=== PATIENT | female | born 1960 | race Caucasian/White ===

== ENCOUNTER 2020-05-22 18:24 | Emergency (ER) | payer MEDICAID ==
[~2020-05-22] VITALS: Ht 165.1 cm; Wt 99.8 kg
[2020-05-22] MEDS ORDERED: Ketorolac 30mg Inj IM ONE (18:30)
[2020-05-22 18:48] VITALS: BP 136/94
--- NOTE | 2020-05-22 18:52 | NUR ---
ED Nurse Note:pt. was BIBA from home with s/p mechanical fall and right elbow and ankle pain, x-ray was done and pain med given
[2020-05-22] MEDS ORDERED: HYDROcodone/Acetamin 5/325 tab ORAL ONE (19:15)
[2020-05-22] MEDS ORDERED: DiphenhydrAMINE 25mg/10ml Elixir ORAL ONE (19:15)
--- NOTE | 2020-05-22 20:15 | Emergency Room Report ---
History of Present Illness General Chief Complaint: Multiple Trauma/Fall Source: Patient (Jocelyn Donovan) Present Illness HPI 59-year-old female with no symptom past medical history brought in by paramedics due to multiple trauma. Patient reports that she was at work and she missed a step twisted her right ankle and landed on her right elbow outstretched hand. Patient rates the pain elbow 10 out of 10 with radiation to right wrist with numbness. Has not taken medication for symptom relief. Also reports that she has severe osteoporosis. Does not take medication on a daily basis. Denies other injuries, head injury or loss of consciousness. Patient is neurovascularly intact. No unilateral generalized weakness noted. Denies chest pain, shortness of breath, headache and dizziness. Denies . 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 (Jocelyn Donovan) Patient History Past Medical History: unable to obtain Past Surgical History: none Pertinent Family History: none Now: No Immunizations: UTD Reviewed Nursing Documentation: PMH: Agreed; PSxH: Agreed (Jocelyn Donovan) Nursing Documentation-PMH Past Medical History: No History, Except For (Jocelyn Donovan) Review of Systems All Other Systems: negative except mentioned in HPI (Jocelyn Donovan) Physical Exam Vital Signs Date Time Temp Pulse Resp B/P (MAP) Pulse Ox O2 Delivery O2 Flow Rate FiO2 05/22/20 18:18 97.7 90 20 136/94 (108) 98 Room Air Sp02 EP Interpretation: reviewed, normal General Appearance: normal inspection, alert, GCS 15 Head: normocephalic, atraumatic Eyes: normal eye exam, PERRL, EOMI, lids + conjunctiva normal, no hyphema, no racoon eyes ENT: normal ENT inspection, TMs + canals normal, oropharynx normal, no coffman signs Neck: trach midline, no bony tend, full range of motion without pain Respiratory: effort normal, no retractions, clear to auscultation, chest symmetrical, palpation of chest normal, speaking in full sentences Cardiovascular: regular rate, rhythm, no JVD Cardiovascular #2: 2+ radial (R), 2+ radial (L), 2+ dorsalis pedis (R), 2+ dorsalis pedis (L) Gastrointestinal: normal inspection, non-tender, non-distended, no rebound/ guarding, normal bowel sounds Genitourinary: normal inspection Musculoskeletal: other - Obvious tenderness and deformity of right ulnar head, right lateral malleolus swelling Skin: no rash Lymphatic: normal inspection Neurologic: oriented x3, sensory intact, motor strength/tone normal, normal speech Psychiatric: normal inspection, memory normal, mood normal, no suicidal/ homicidal ideation (Jocelyn Donovan) Procedures Splinting Splinting #1: Consent: Verbal Location: Right elbow Hand-Made Type: plaster Splint: sugar-tong Pre-Proc Neuro Vasc Exam: normal Post-Proc Neuro Vasc Exam: normal Patient Tolerated: Well Complications: None Splinting #2: Consent: Verbal Location: Right ankle Pre-Made Type: Postoperative shoe was given as we could not splint the right ankle and the right elbow as patient will not be able to walk and use a walker at the same time. Pre-Proc Neuro Vasc Exam: normal Post-Proc Neuro Vasc Exam: normal Patient Tolerated: Well Complications: None Progress Sling was applied (Joeclyn Donovan) Medical Decision Making PA Attestation All diagnoses and treatment plans were reviewed and discussed with my supervising physician Dr. Souaz (Jocelyn Donovan) Diagnostic Impression: Primary Impression: Closed fracture of head of right ulna Additional Impression: Ankle sprain ER Course 59-year-old female with no symptom past medical history brought in by paramedics due to multiple trauma. Patient reports that she was at work and she missed a step twisted her right ankle and landed on her right elbow outstretched hand. Patient rates the pain elbow 10 out of 10 with radiation to right wrist with numbness. Has not taken medication for symptom relief. Also reports that she has severe osteoporosis. Does not take medication on a daily basis. Denies other injuries, head injury or loss of consciousness. Patient is neurovascularly intact. No unilateral generalized weakness noted. Denies chest pain, shortness of breath, headache and dizziness. Denies . Ddx considered but are not limited to: ankle sprain, ankle strain, ankle fracture, ankle contusion, ankle fracture versus contusion versus sprain Vital signs: are WNL, pt. is afebrile H&PE are most consistent with: Closed fracture of right ulnar head, right ankle sprain ORDERS: ankle x-ray, elbow x-ray, ibuprofen 800, Gautier, Zofran and Benadryl were given as patient reported that narcotics make her nauseous and itchy. ED INTERVENTIONS: Toradol, Zofran, Benadryl, Gautier. After Zofran. Was given and Gautier given shortly after patient denies any nausea or any itchiness. Splint was applied and a walker was provided. Postoperative shoe was applied with Wagner wrap right ankle DISCHARGE: At this time pt. is stable for d/c to home. Will provide printed patient care instructions, and any necessary prescriptions. Care plan and follow up instructions have been discussed with the patient prior to discharge patient to follow-up with video specialist, take medication as directed, if worsening symptoms return to the emergency room also take if any increased pressure and swelling and any dyspnea to prevent compartment syndrome (Jocelyn Donovan) Other X-Ray Diagnostic Results Other X-Ray Diagnostic Results #1: X-Ray ordered: Right elbow # of Views/Limited Vs Complete: 3 View Indication: Pain EP Interpretation: Yes Interpretation: other - Fracture right ulnar head Impression: Other - Right ulnar head fracture Electronically Signed by: Jocelyn Up PA-C Other X-Ray Diagnostic Results #2: X-Ray ordered: Right ankle # of Views/Limited Vs Complete: 3 View Indication: Pain EP Interpretation: Yes Interpretation: no dislocation, no fractures Impression: No acute disease Electronically Signed by: Jocelyn Up PA-C PA Scribe Text Possible hairline fracture due to patient being osteopenic (Jocelyn Donovan) Other X-Ray Diagnostic Results #1: Electronically Signed by: P A documentation of Xray reviewed by me and is accurate, Jeff Souza MD Other X-Ray Diagnostic Results #2: Electronically Signed by: P A documentation of Xray reviewed by me and is accurate, Jeff Souza MD (Jeff Souza MD) Last Vital Signs Date Time Temp Pulse Resp B/P (MAP) Pulse Ox O2 Delivery O2 Flow Rate FiO2 05/22/20 18:54 97.7 05/22/20 18:48 90 20 136/94 98 Room Air (Jocelyn Donovan) Disposition: HOME, SELF-CARE Condition: Stable Scripts Diphenhydramine Hcl* (BENADRYL*) 25 Mg Capsule 25 MG ORAL Q8HR PRN for Itching, #20 CAP Prov: Jocelyn Donovan 05/22/20 Ondansetron (Zofran) 4 Mg Tablet 4 MG ORAL Q6H PRN for Nausea & Vomiting, #14 TAB Prov: Jocelyn Donovan 05/22/20 Ibuprofen (Ibu) 800 Mg Tablet 800 MG PO TID, #30 TAB Prov: Jocelyn Donovan 05/22/20 Hydrocodone Bit/Acetaminophen 5-325* (NORCO 5-325 TABLET*) 1 Each Tablet 1 TAB ORAL Q8HR PRN for FOR PAIN for 4 Days, #12 TAB 0 Refills Prov: Jocelyn Donovan 05/22/20 Referrals: NON PHYSICIAN (PCP) Patient Instructions: Ankle Sprain, [id number], Ulnar Fracture Additional Instructions: Take medication as directed, follow-up with your video specialist, worsening symptoms return to the emergency room Jocelyn Donovan May 22, 2020 20:15 Jeff Souza MD May 23, 2020 05:11
[2020-05-22] MEDS ORDERED: BENADRYL25 MG ORAL (20:16)
[2020-05-22] MEDS ORDERED: IBU800 MG PO (20:16)
[2020-05-22] MEDS ORDERED: NORCO 5-325 TA1 EAC1 ORAL (20:16)
[2020-05-22] MEDS ORDERED: ZOFRAN4 M1 ORAL (20:16)
--- NOTE | 2020-05-22 20:35 | NUR ---
ER DISCHARGE NOTE: Patient is cleared to be discharged per ERMD, pt is aox4, on room air, with stable vital signs. pt was given dc and prescription instructions, pt was able to verbalize understanding, pt id band removed. pt is able to ambulate with steady gait with walker/cane, pt left with daughter. pt took all belongings.
[2020-05-22 20:45] VITALS: BP 128/88
--- NOTE | 2020-05-23 10:23 | Diagnostic Imaging Report ---
EXAM: X-RAY XRAY Elbow Min 3v R CLINICAL HISTORY: Trauma with elbow pain. COMPARISON: None FINDINGS: Total of free views of the right elbow were obtained. There is a fracture of the proximal ulna which is only mildly displaced. There is also a subtle depressed fracture of the radial head. Joint spaces are unremarkable. Surrounding soft tissue is normal. IMPRESSION: RADIAL AND ULNAR FRACTURES
--- NOTE | 2020-05-23 10:24 | Diagnostic Imaging Report ---
EXAM: X-RAY XRAY Ankle Compl Min 3v R CLINICAL HISTORY: Trauma with ankle pain. COMPARISON: None FINDINGS: Total of 3 views of the right ankle were obtained. Alignment is anatomic. There is no acute fracture, bony lesions or erosions. There may be an old avulsion of the navicular. Joint spaces appear anatomic. Surrounding soft tissue is normal. IMPRESSION: NO ACUTE FRACTURE OR MALALIGNMENT. POSSIBLE OLD AVULSION OF THE NAVICULAR.
== END 2020-05-22 20:35 | disposition home or self-care (01) ==
LOC: EDBD 18:24 → EMR 18:54
DX: S52.001A Unspecified fracture of upper end of right ulna, initial encounter for closed fracture (principal); S93.401A Sprain of unspecified ligament of right ankle, initial encounter; W10.9XXA Fall (on) (from) unspecified stairs and steps, initial encounter; Y93.01 Activity, walking, marching and hiking; Y92.89 Other specified places as the place of occurrence of the external cause
CPT/HCPCS: 29105; 73080; 73610; 96372; 96374; J1885; J2405; Z7502; 99284

== ENCOUNTER 2020-05-26 20:02 | Emergency (ER) | payer MEDICAID ==
[~2020-05-26] VITALS: Ht 165.1 cm; Wt 72.6 kg
[~2020-05-26 20:02] MED LIST: BENADRYL25 MG ORAL; IBU800 MG PO; NORCO 5-325 TA1 EAC1 ORAL; ZOFRAN4 M1 ORAL
[2020-05-26 20:18] VITALS: BP 140/88
[2020-05-26] MEDS ORDERED: Morphine Sulfate 4mg/ml Inj (IV USE ONLY) IV ONE (21:00)
[2020-05-26] MEDS ORDERED: HYDROcodone/Acetamin 10/325 tab ORAL ONE (21:00)
[2020-05-26] MEDS ORDERED: Morphine Sulfate 2mg/ml Inj(IV/IM USE ONLY) IM ONE ×2 (21:30)
[2020-05-26] MEDS ORDERED: Morphine Sulfate 4mg/ml Inj (IV USE ONLY) IVP ONE (21:45)
--- NOTE | 2020-05-26 22:34 | Emergency Room Report ---
History of Present Illness General Chief Complaint: Upper Extremity Injury Source: Patient Present Illness HPI [id number] 59-year-old obese female presents with complaint of numbness and tingling to the right upper extremity where her splint is contacting her skin. Of note, patient was recently treated in the emergency department and discharged with a splint after she had trauma resulting in a closed right ulna and radial fracture. She states today at 7 PM she started to feel mild pain and numbness at the medial aspect of her splint. She has follow-up with an orthopedic surgeon Tuesday at 10 AM. She denies repeat trauma, paralysis, pain out of proportion, chest pain, shortness of breath, nausea, vomiting, or other complaints The patient's symptom severity was moderate, duration since 1days. Quality: aching Past medical history: Denies Past surgical history: Denies Smoking: Denies Alcohol use: Denies Drug use: Denies Review of systems: CONST: No fevers or chills, No night sweats PULMONARY: No productive cough, No shortness of breath CARDIAC: No chest pain, No palpitations GI: No vomiting, No diarrhea , No melena_or_BRBPR : No dysuria, No hematuria, No discharge NEURO: No new_focal_weakness_or_numbness, No confusion, No vision changes 14 point Review of Systems is otherwise negative except per HPI Physical Exam: GENERAL: Awake_alert_ nontoxic, no acute distress Spo2 98% on RA -normal EYES: Extraocular muscles are intact. Conjunctivae clear. Lids without swelling ENT: External nose and ear normal_in_appearance. Oropharynx clear. Head_ atraumatic, Moist_oral_mucosa NECK: No JVD. No meningismus. No thyromegaly. Supple. Trachea midline RESP: Normal respiratory effort. Symmetric rise. No stridor. Clear_to_ auscultation_No_rales_No_wheezes CARDIAC: [Regular rate] and regular rhythm on_auscultation No_significant pedal edema. ABDOMEN: Soft. Nondistended. Nontender_No_rebound_or_guarding. MSK: Normal muscle tone, without rigidity. Extremities without asymmetric deformity or swelling. Upper extremity exam: RIGHT Elbow: mild swelling / effusion appreciated, no significant pain with passive range of motion; COMPARTMENT ARE SOFT AND COMPRESSIBLE SILT, intact AIN PIN MEDIAN RADIAL ULNAR N. Mild difficulty opposing thumb to pink Wrist: No swelling / effusion appreciated, no significant pain with passive range of motion Lateral epicondyle: no tenderness / swelling / ecchymoses Medial epicondyle: no tenderness / swelling / ecchymoses Radial pulse: 2+ Capillary refill: <3 seconds in all fingers All fingers: full range of motion without any tenderness / swelling / deformity / evidence of infection Scaphoid: no tenderness / swelling / ecchymoses, no pain with axial loading of the thumb Radian / Median / Ulnar nerves: all intact (finger opposition, finger adduction / abduction, thumb dorsiflexion) Sensation intact to light touch: in all fingers Strength 5/5 with: wrist dorsi / volar flexion, hand consulting services associate, elbow flexion / extension SKIN: Warm and dry. No visible cyanosis or pallor NEUROLOGIC: Alert, oriented x3. Motor_and_sensation_grossly_intact. No truncal ataxia. Gait_normal Psych: Normal mood and affect, normal judgment and insight - COORDINATION OF CARE Case was discussed with: Patient Any imaging that were ordered were interpreted as part of the medical decision making: Medical Decision Making/Plan: Differential diagnosis includes musculoskeletal pain, fracture, dislocation, compartment syndrome, nerve damage, among others. Initial vital signs are unremarkable. Due to initial concern for compartment syndrome, the splint was cut off. Exam of the right upper extremity demonstrate mild difficulty in opposing right thumb to right pinky. Concern for nerve apraxia, otherwise grossly unremarkable. She has retained flexion and extension of the elbow/wrist. No snuffbox tenderness to palpation. Sensation is intact to light touch. Compartment checks were unremarkable. All compartments of the right forearm are soft and compressible. There is no gross deformity. X-rays redemonstrate closed minimally displaced ulna/radius fracture. Pain was controlled after we removed the splint. We resplinted patient a bit more loosely and added a sling for comfort. Fortunately, patient has prompt orthopedic follow-up within the next 1 to 2 days for definitive management. I have instructed her to be nonweightbearing to the right upper extremity until seen by Ortho. I do not have high suspicion that she has compartment syndrome. Her pain has resolved. The compartments are soft, but we discussed strict return ER precautions at length, to which she verbalizes her understanding. Distally the patient has capillary refill <2 seconds and strong pulses. There is no pallor or pain out of proportion to exam. There is no significant swelling, deformity, or report of significant dislocation that subsequently reduced. No evidence of arterial occlusion or injury. The associated joints have full range of motion without any significant pain or restriction in mobility. No evidence at this time of major ligamentous disruption. Pertinent results reviewed with the patient. I educated the patient on the current treatment plan including the risks, benefits, and alternatives. I also discussed the extent and limitations of the current evaluation. The patient expressed understanding and agreement with plan. I recommended PMD follow-up within 1-2 days. Also advised that the patient return to the Emergency Department as soon as possible if they experience any new, persistent, or worsening symptoms. 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 Applied to right shoulder Splint applied by [employer] with direct supervision by me. Reassessed following splint application. Neurovascular intact. Compartments remain soft and compressible. Pt tolerated well without complications. Splint care instructions were discussed. 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 Right elbow sugar tong splint: splint applied to right upper extremity Splint applied by tech with direct supervision by me. Reassessed following splint application. Neurovascular intact. Compartments remain soft and compressible. Pt tolerated well without complications. Splint care instructions were discussed. 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 Medical Decision Making Diagnostic Impression: Primary Impression: Closed fracture of head of right ulna Additional Impression: Radial head fracture, closed Chest X-Ray Diagnostic Results Chest X-Ray Diagnostic Results : PA Scribe Text Right forearm X-ray: Views: 2 view(s) Radial fracture. Ulnar fracture minimal dislocation Indication: Pain Impression: Closed fracture of the right ulnar head. Radial head fracture. Minimal dislocation. The X-ray(s) were independently viewed and interpreted contemporaneously - Electronically signed by Ruthy mcconnell DO Right forearm X-ray: Views: 2 view(s) Radial fracture. Ulnar fracture minimal dislocation Indication: Splint Impression: Closed fracture of the right ulnar head. Radial head fracture. Minimal dislocation. Splint in place The X-ray(s) were independently viewed and interpreted contemporaneously - Electronically signed by Ruthy mcconnell DO Right humerus X-ray: Views: 2 view(s) Ulna and radial fracture. Minimal dislocation Indication: Pain Impression: Close fracture of the right ulnar head. Fracture of the radial head. 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 Follow-up with your orthopedic surgeon on Tuesday at 10 AM as scheduled. Follow-up with your doctor sooner if your condition requires a more timely clinical reevaluation including pain out of proportion or tight compartments underneath your splint. Keep your splint clean, dry, and intact Return to the emergency department immediately if you feel that your condition is worsening or if you have any new or concerning symptoms. Review your discharge instructions and take any prescriptions given as instructed. Ruthy Chavira D.O. May 26, 2020 22:34
[2020-05-26 22:42] VITALS: BP 132/84
--- NOTE | 2020-05-27 15:30 | Diagnostic Imaging Report ---
Indications: Right arm pain, status post fall 4 days ago Technique: Two views of the right forearm Comparison: None Findings: Plaster splint obscures bony detail. There appears to be a fracture of the radial head and neck, not well visualized, better appreciated on prior elbow radiograph of 05/22/2020. There also appears to be a fracture of the proximal ulna Impression: Proximal radial and ulnar fractures, not well-demonstrated, better demonstrated on earlier exams prior to casting
--- NOTE | 2020-05-27 15:31 | Diagnostic Imaging Report ---
Indications: Right arm pain Technique: Two views of the right humerus Comparison: None Findings: AP view barely demonstrates radial and ulnar fractures reported on other earlier radiographs. No humeral fracture demonstrated.. Impression: Negative
--- NOTE | 2020-05-27 15:35 | Diagnostic Imaging Report ---
Indications:Right arm pain, 4 days after fall and placement of a temporary cast Technique: Three or 4 views of the right elbow Comparison: 05/22/2020 Findings:Overlying splint appears bone detail. Oblique fracture of the proximal ulna, slightly distracted, is again demonstrated and appears unchanged. Associated depressed radial head fracture is also again demonstrated, appears similar to the prior exam. Impression: Proximal radial and ulnar fractures, imaging of which is somewhat obscured due to overlying plaster splint, grossly unchanged since prior study of 05/22/2020
== END 2020-05-26 22:42 | disposition home or self-care (01) ==
LOC: EMR 20:25
DX: S52.101A Unspecified fracture of upper end of right radius, initial encounter for closed fracture (principal); S52.001A Unspecified fracture of upper end of right ulna, initial encounter for closed fracture; E66.9 Obesity, unspecified; Z68.26 Body mass index [BMI] 26.0-26.9, adult; X58.XXXA Exposure to other specified factors, initial encounter; Y92.9 Unspecified place or not applicable
CPT/HCPCS: 29105; 73060; 73070; 73090; 96374; J2270; Z7502; 99284